=== PATIENT | male | born 1990 | race Caucasian/White ===

== ENCOUNTER 2023-10-11 17:58 | Emergency (ER) | payer OTHER ==
[~2023-10-11] VITALS: Ht 175.3 cm; Wt 72.6 kg
[2023-10-11 17:58] VITALS: BP 147/89; PULSE 119; RESP 16; TEMP 98.2; O2SAT 98
[2023-10-11] MEDS: LORazepam 1 MG TAB PO ONE (19:23)
[2023-10-11] MEDS ORDERED: CHLO-836 PO (19:34)
[2023-10-11] MEDS: LORazepam 2 MG/ML VIAL IM ONE (19:48)
== END 2023-10-11 20:08 | disposition home or self-care (01) ==
LOC: MED 17:58
DX: R55 Syncope and collapse (principal); F10.129 Alcohol abuse with intoxication, unspecified; Y90.9 Presence of alcohol in blood, level not specified
CPT/HCPCS: 96372; 99283; J2060